=== PATIENT | female | born 1985 | race American Indian/Alaskan Native ===

== ENCOUNTER 2018-10-31 10:16 | Emergency (ER) | payer OTHER ==
[2018-10-31 10:18] VITALS: BMI 34.3
[2018-10-31 10:22] VITALS: BP 121/82; PULSE 84; RESP 18; TEMP 97.7; O2SAT 97
[2018-10-31 11:28] LABS: INFLUENZA A B NEGATIVE FOR FLU A/B (NEGATIVE)
--- NOTE | 2018-10-31 11:32 | ED PDOC ---
Arrival/HPI - General Chief Complaint: ENT Problem Time Seen by Provider: 10/31/18 10:17 Historian: Patient - History of Present Illness Narrative History of Present Illness (Text): 10/31/18 17:19 33 y/o female with no significant PMH presents to the ED c/o sore throat x 2 days. Associated sinus congestion, dry cough, and subjective fever yesterday. Has not taken any medication today for symptoms. No recent travel or sick cont acts. Denies fever, chills, abdominal pain, nausea, vomiting, chest pain, SOB, sputum, wheezing, back pain, urinary symptoms, or any other associated symptoms. Past Medical History - Infectious Disease Hx of Infectious Diseases: None - Psychiatric Hx Substance Use: No - Anesthesia Hx Anesthesia: No Family/Social History - Physician Review Nursing Documentation Reviewed: Yes Family/Social History: No Known Family HX Smoking Status: Never Smoked Hx Alcohol Use: No Hx Substance Use: No Allergies/Home Meds Allergies/Adverse Reactions: Allergies Penicillins Allergy (Verified 10/31/18 10:18) SWELLING Home Medications: Home Meds Medication Instructions Recorded Confirmed Norgestimate-Ethinyl Estradiol 1 tab PO DAILY 10/31/18 10/31/18 [Ortho Tri-Cyclen Lo Tablet] Review of Systems - Review of Systems Constitutional: Normal. absent: Fatigue, Fevers Eyes: Normal. absent: Vision Changes ENT: Sore Throat, Sinus Congestion Respiratory: Cough. absent: SOB, Sputum, Wheezing Cardiovascular: absent: Chest Pain, Palpitations, Syncope Gastrointestinal: Normal. absent: Abdominal Pain, Stool Changes, Nausea, Vomiting, Appetite Changes, Food Intolerance Genitourinary Female: Normal. absent: Dysuria, Frequency Musculoskeletal: Normal. absent: Back Pain, Neck Pain Skin: Normal. absent: Rash Neurological: Normal. absent: Headache, Dizziness, Focal Weakness Physical Exam Vital Signs Reviewed: Yes Vital Signs Temp Pulse Resp BP Pulse Ox 10/31/18 10:21 97.7 F 84 18 121/82 97 Temperature: Afebrile Blood Pressure: Normal Pulse: Regular Respiratory Rate: Normal Appearance: Positive for: Well-Appearing, Non-Toxic, Comfortable Pain Distress: None Mental Status: Positive for: Alert and Oriented X 3 - Systems Exam Head: Present: Atraumatic, Normocephalic Pupils: Present: PERRL Extroacular Muscles: Present: EOMI Conjunctiva: Present: Normal Ears: Present: Normal, NORMAL TM, Fluid (clear, behind bilateral TM) Mouth: Present: Moist Mucous Membranes Pharnyx: Present: ERYTHEMA (bilateral tonsils), TONSILS ENLARGED (bilateral). No: EXUDATE, Uvular Deviation, Muffled/Hoarse Voice, Strider, Other (no tripoding) Nose (External): Present: Atraumatic Nose (Internal): Present: Normal Inspection Neck: Present: Normal Range of Motion. No: Meningeal Signs, Paraspinal Tenderness Respiratory/Chest: Present: Clear to Auscultation, Good Air Exchange. No: Respiratory Distress, Accessory Muscle Use Cardiovascular: Present: Regular Rate and Rhythm, Normal S1, S2, Peripheal Pulses Present Upper Extremity: Present: Normal Inspection, Normal ROM, NORMAL PULSES, Neurovascularly Intact, Capillary Refill < 2s. No: Cyanosis, Edema, Temperature Abnormalties Lower Extremity: Present: Normal ROM Neurological: Present: GCS=15, CN II-XII Intact, Speech Normal, Motor Func Grossly Intact, Normal Sensory Function, Gait Normal Skin: Present: Warm, Dry, Normal Color. No: Rashes Psychiatric: Present: Alert, Oriented x 3, Normal Insight, Normal Concentration, Normal Affect, Normal Mood Medical Decision Making ED Course and Treatment: Initial Plan: * Rapid strep * Rapid flu Rapid strep and flu negative. Pt most likely with viral URI. Advised supportive care and PMD followup. Diagnostic testing results and plan of care discussed with patient. Strict instructions given regarding prescription use, importance of followup, and signs/symptoms to return to ER including SOB, productive cough, chest pain, or any other new/worsening symptoms. Pt verbalized understanding of discussion. Patient is A&Ox3, ambulating with steady gait, with vital signs stable for discharge. - Lab Interpretations Lab Results: Lab Results 10/31/18 10:24: Influenza Typ A,B (EIA) Negative for flu a/b, Grp A Beta Strep Ag Negative I have reviewed the lab results: Yes Disposition/Present on Arrival - Present on Arrival Any Indicators Present on Arrival: No History of DVT/PE: No History of Uncontrolled Diabetes: No Urinary Catheter: No History of Decub. Ulcer: No History Surgical Site Infection Following: None - Disposition Have Diagnosis and Disposition been Completed?: Yes Diagnosis: Pharyngitis, Upper respiratory infection Disposition: HOME/ ROUTINE Disposition Time: 11:34 Patient Plan: Discharge Condition: GOOD Discharge Instructions (ExitCare): Viral Pharyngitis, Sore Throat in Adults, Viral Upper Respiratory Infection, Adult (DC) Additional Instructions: Increase fluids Rest, no strenuous activity Over the counter Cepacol as directed Followup with primary doctor within 2 days Return to ER with any new/worsening symptoms Prescriptions: Benzocaine/Menthol [Cepacol Sore Throat] 1 giuliana MM Q4 PRN #30 giuliana PRN Reason: Sore Throat Referrals: Jalil Baeza DO [Staff Provider] - Follow up with primary Zandra Torres MD [Medical Doctor] - [place] up with primary [facility] [place] - Follow up with primary Forms: [employer] (Polish), WORK NOTE
== END 2018-10-31 12:18 | disposition home or self-care (01) ==
LOC: ED 10:16
DX: J02.9 Acute pharyngitis, unspecified (principal)

== ENCOUNTER 2018-12-12 08:50 | Outpatient (CLI) | payer OTHER | END 2018-12-12 08:51 | disposition home or self-care (01) | LOC: LAB 08:50 ==